=== PATIENT | male | born 1945 | race Caucasian/White ===

== ENCOUNTER 2023-06-20 09:13 | Emergency (ER) | payer OTHER, SELFPAY ==
--- NOTE | ~2023-06-20 | XR_ITS ---
Clinical Indication: Cough PA and lateral views of the chest: Comparison: 11/21/2015 Findings: The lungs are clear, without evidence of focal consolidation or pleural effusion. Cardiome diastinal silhouette is within normal limits. Bones and soft tissues are unremarkable. Impression: Normal chest. Reviewed, dictated and finalized at [facility]. Impression: Normal chest.
[2023-06-20 09:46] VITALS: BP 125/88; PULSE 102; RESP 16; TEMP 37.4; O2SAT 98
--- NOTE | 2023-06-20 10:15 | ED.GENADULT ---
HPI - General Adult General Chief complaint: Upper Respiratory Infection Stated complaint: Sinus/Cough Source: patient Mode of arrival: ambulatory Limitations: no limitations History of Present Illness HPI narrative: Patient presents for evaluation of sick symptoms for the last 2 days. Symptoms include sore throat, diarrhea, headache, productive cough of clear sputum, rhinorrhea, shortness of breath and dry heaves during coughing episodes. He denies any fever, chills, nausea, vomiting. He tried some [id number] cough medication which did not help. His is being evaluated here for similar symptoms. He does not smoke. Related Data Home Medications Medication Instructions Recorded Confirmed carvedilol 6.25 mg tablet mg 06/20/23 fluticasone propionate 50 intranasal 06/20/23 mcg/actuation nasal spray,suspension losartan 25 mg tablet mg 06/20/23 nitroglycerin 0.4 mg sublingual mg 06/20/23 tablet omeprazole 20 mg capsule,delayed mg 06/20/23 release simvastatin 40 mg tablet mg 06/20/23 Allergies Allergy/AdvReac Type Severity Reaction Status Date / Time No Known Allergies Allergy Verified 06/20/23 09:45 Review of Systems Review of Systems: CONSTITUTIONAL: Denies fever, chills, or sweats. EYES: Denies visual changes, redness, or discharge. ENT: Reports sore throat and rhinorrhea. Denies otalgia. CARDIOVASCULAR: Denies chest pain, palpitations, or edema. RESPIRATORY: Reports cough and some shortness of breath. Denies chest pain GASTROINTESTINAL: Reports dry heaves during coughing episodes. Reports diarrhea. Denies abdominal pain, nausea, or vomiting. GENITOURINARY: Denies dysuria or hematuria. SKIN: Denies rash or itching. MUSCULOSKELETAL: Denies back pain, joint pain, or myalgia. NEUROLOGIC: Denies headache, numbness, dizziness, or weakness. PSYCHIATRIC: Denies anxiety or depression. [facility] Past Medical History Medical History (Updated 06/20/23 @ 11:04 by BELLA Webb, REGGIE) Accelerated essential hypertension GERD (gastroesophageal reflux disease) Hyperlipidemia Surgical History Surgical History History of hernia repair Family History Family History Mother Family history non-contributory Social History Social History Substance use: never Living arrangements: with family Gender identity (if verbalized by the patient): Male Sexual Orientation (if Verbalized by the Patient): Straight or Heterosexual Spiritual care concerns: No Exam Narrative: GENERAL: Appears acutely ill but nontoxic HEAD: Normocephalic, atraumatic. EYES: PERRLA and EOMI. ENT: Posterior pharyngeal erythema without exudate. Uvula is midline. TM erythematous NECK: Supple. No adenopathy or masses. No carotid bruits or JVD CHEST: Cough present on exam. Clear to auscultation. No respiratory distress. No wheezes rales or rhonchi HEART: Regular rate and rhythm. No murmur heard. Normal peripheral pulses. ABDOMEN: Soft, nontender, nondistended, normal active bowel sounds. EXTREMITIES: Normal range of motion. No edema. SKIN: Warm, dry, no rash. NEURO: No focal deficits. Alert and oriented x3. PSYCH: Normal mood and affect. Course Course Emergency Course: THIS IS A 77-YEAR-OLD MALE WHO PRESENTED FOR EVALUATION OF SICK SYMPTOMS. COVID, STREP, INFLUENZA WERE ALL NEGATIVE. CHEST X-RAY NORMAL. ALL OF HIS 'S TEST WERE ALSO NORMAL. EXAM IS CONSISTENT WITH ACUTE VIRAL SYNDROME. WILL DC WITH MUCINEX DM. PATIENT NONTOXIC APPEARING. INCREASE HYDRATION. FOLLOW UP WITH PRIMARY PROVIDER. [id number] AGENTS FOR SYMPTOM MANAGEMENT. GO TO THE EMERGENCY DEPARTMENT FOR WORSENING SYMPTOMS. PATIENT AND IN AGREEMENT PLAN OF CARE. Level of Care: Express Care Visit Vital Signs Vital signs:
== END 2023-06-20 11:12 | disposition home or self-care (01) ==
PROVIDERS: Emergency Provider Nurse Practitioner
DX: B34.9 Viral infection, unspecified (principal); E78.5 Hyperlipidemia, unspecified; Z79.899 Other long term (current) drug therapy; Z20.822 Contact with and (suspected) exposure to COVID-19
CPT/HCPCS: 71046; 87081; 87426; 87804; 87880; 99213; C9803; G0463